=== PATIENT | female | born 1985 | race Two or more races ===

== ENCOUNTER 2016-07-17 17:29 | Outpatient (CLI) | payer MEDICAID ==
[2016-07-17 18:15] LABS: APPEARANCE,URINE CLEAR; BILIRUBIN,URINE NEGATIVE (NEGATIVE); GLUCOSE, URINE NEGATIVE (NEGATIVE); KETONES,URINE NEGATIVE (NEGATIVE); LEUKOCYTE ESTERASE,URINE NEGATIVE (NEGATIVE); NITRITE,URINE NEGATIVE (NEGATIVE); PROTEIN,URINE NEGATIVE (NEGATIVE); URINE SPECIFIC GRAVITY 1.002; UROBILINOGEN,URINE NEGATIVE mg/dL (<2.0)
[2016-07-17 18:32] LABS: URINE BARBITURATES SCREEN NEGATIVE; URINE METHADONE SCREEN NEGATIVE; URINE OPIATES LOW NEGATIVE; URINE PHENCYCLIDINE SCREEN NEGATIVE
== END 2016-07-17 18:57 | disposition home or self-care (01) ==
LOC: LC 17:29
PROVIDERS: ATTEND Obstetrics & Gynecology
DX: Z3A.25 25 weeks gestation of pregnancy (principal)
CPT/HCPCS: 80307; 81001

== ENCOUNTER → 2016-08-06 | Outpatient (CLI) | payer MEDICAID | LOC: SP 11:18 | PROVIDERS: ATTEND Advanced Practice Midwife | DX: M79.661 Pain in right lower leg (principal) | CPT/HCPCS: 93971 ==

== ENCOUNTER 2016-08-29 15:29 | Outpatient (CLI) | payer MEDICAID ==
[2016-08-29 16:28] LABS: APPEARANCE,URINE SLIGHTLY-CLOUDY; BILIRUBIN,URINE NEGATIVE (NEGATIVE); GLUCOSE, URINE NEGATIVE (NEGATIVE); KETONES,URINE 20 mg/dL (NEGATIVE); LEUKOCYTE ESTERASE,URINE NEGATIVE (NEGATIVE); NITRITE,URINE NEGATIVE (NEGATIVE); PROTEIN,URINE NEGATIVE (NEGATIVE); URINE SPECIFIC GRAVITY 1.006; UROBILINOGEN,URINE NEGATIVE mg/dL (<2.0)
[2016-08-29 16:41] LABS: URINE BARBITURATES SCREEN NEGATIVE; URINE METHADONE SCREEN NEGATIVE; URINE OPIATES LOW NEGATIVE; URINE PHENCYCLIDINE SCREEN NEGATIVE
[2016-08-29] MEDS ORDERED: BETAMET ACET/BETAMET NA INJ 6 MG/1 ML ONE (16:41)
[2016-08-29 17:12] LABS: ABSOLUTE EOSINOPHILS # (AUTO) 0.1 10^3/uL (0.0-0.6); ABSOLUTE LYMPHOCYTES (AUTO) 1.4 10^3/uL (0.5-4.7); ABSOLUTE MONOCYTES (AUTO) 0.5 10^3/uL (0.1-1.4); ABSOLUTE NEUT (AUTO) 5.6 10^3/uL (1.7-8.2); BASOPHILS % (AUTO) 0.6 % (0-2); EOSINOPHILS % (AUTO) 0.7 % (0-6); HGB HCT DIFFERENCE -2.1; LYMPHOCYTES % (AUTO) 18.3 % (13-45); MEAN CORPUSCULAR HEMOGLOBIN 20.2 pg (27.0-33.4); MEAN CORPUSCULAR HGB CONC 30.4 g/dL (32.0-36.0); MEAN CORPUSCULAR VOLUME 66 fl (80-97); MONOCYTES % (AUTO) 6.5 % (3-13); RED BLOOD COUNT 3.63 10^6/uL (3.72-5.28); RED CELL DISTRIBUTION WIDTH 19.3 % (11.5-14.0); SEGMENTED NEUTROPHILS % (AUTO) 73.9 % (42-78); WHITE BLOOD COUNT 7.6 10^3/uL (4.0-10.5)
[2016-08-29 17:16] LABS: HEMOGLOBIN 7.3 g/dL (12.0-15.5)
[2016-08-29 17:34] LABS: ALANINE AMINOTRANSFERASE 18 U/L (9-52); ALBUMIN 3.1 g/dL (3.5-5.0); ALKALINE PHOSPHATASE 123 U/L (38-126); AMYLASE 32 U/L (30-110); ANION GAP 9 (5-19); ASPARTATE AMINO TRANSFERASE 13 U/L (14-36); BILIRUBIN,DIRECT 0.1 mg/dL (0.0-0.4); BILIRUBIN,TOTAL 0.6 mg/dL (0.2-1.3); BLOOD UREA NITROGEN 6 mg/dL (7-20); CALCIUM 8.5 mg/dL (8.4-10.2); CARBON DIOXIDE 22 mmol/L (22-30); CHLORIDE 103 mmol/L (98-107); CREATININE RESULT 0.38 mg/dL (0.52-1.25); GLUCOSE 252 mg/dL (75-110); LIPASE 36.8 U/L (23-300); SODIUM 134.1 mmol/L (137-145); TOTAL PROTEIN 5.5 g/dL (6.3-8.2)
== END 2016-08-29 16:33 | disposition home or self-care (01) ==
LOC: LC 15:29
PROVIDERS: ATTEND Obstetrics & Gynecology
PROC: 4A1HXCZ Monitoring of Products of Conception, Cardiac Rate, External Approach (ICD-10-PCS; principal; 2016-08-29)
DX: O47.03 False labor before 37 completed weeks of gestation, third trimester (principal); O99.283 Endocrine, nutritional and metabolic diseases complicating pregnancy, third trimester; E86.0 Dehydration; Z3A.31 31 weeks gestation of pregnancy
CPT/HCPCS: 59899; 96372; 36415; 82150; 83690; 85025; 80053; 81001; 80307; 76815; J0702

== ENCOUNTER → 2016-08-30 | Outpatient (CLI) | payer MEDICAID | LOC: LC 17:15 | PROVIDERS: ATTEND Obstetrics & Gynecology | PROC: 4A1HXCZ Monitoring of Products of Conception, Cardiac Rate, External Approach (ICD-10-PCS; principal; 2016-08-30) | DX: Z36 Encounter for antenatal screening of mother (principal) | CPT/HCPCS: 96372 ==

== ENCOUNTER 2016-09-07 13:49 | Emergency (ER) | payer MEDICAID ==
--- NOTE | 2016-09-07 15:42 | ER Document Report ---
ED Medical Screen (RME) - General Chief Complaint: Dizziness Stated Complaint: DIFFICULTY BREATHING, DIZZINESS Notes: patient says that she's been feeling like she can't breathe well for the past week. She's had about 3 episodes. They've been associated with feeling dizzy and blurred vision. She has a history of anemia and was almost transfused during her first . She says that her hemoglobin 2 weeks ago was 7.3. She is not having any bleeding. She is on iron pills and they don't seem to be helping. She's having problems with constipation. Patient is 33 weeks gestation. No vaginal bleeding. TRAVEL OUTSIDE OF THE [place] IN LAST 30 DAYS: No - Related Data Allergies/Adverse Reactions: No Known Allergies Allergy (Verified 09/07/16 13:54) Past Medical History Endocrine Medical History: Reports: Hx Diabetes Mellitus Type 2 Renal/ Medical History: Denies: Hx Peritoneal Dialysis - Immunizations Hx Diphtheria, Pertussis, Tetanus Vaccination: Yes - 01/10/14 Physical Exam - Vital signs Vitals: Temp Pulse Resp BP Pulse Ox 98.6 F 93 32 H 112/69 99 09/07/16 13:55 09/07/16 13:55 09/07/16 13:55 09/07/16 13:55 09/07/16 13:55 Course - Vital Signs Vital signs: Temp Pulse Resp BP Pulse Ox 98.6 F 93 32 H 112/69 99 09/07/16 13:55 09/07/16 13:55 09/07/16 13:55 09/07/16 13:55 09/07/16 13:55
[2016-09-07 16:47] LABS: ABSOLUTE BASOPHILS # (AUTO) 0.1 10^3/uL (0.0-0.2); ABSOLUTE EOSINOPHILS # (AUTO) 0.1 10^3/uL (0.0-0.6); ABSOLUTE LYMPHOCYTES (AUTO) 1.8 10^3/uL (0.5-4.7); ABSOLUTE MONOCYTES (AUTO) 0.9 10^3/uL (0.1-1.4); ABSOLUTE NEUT (AUTO) 6.3 10^3/uL (1.7-8.2); BASOPHILS % (AUTO) 0.7 % (0-2); EOSINOPHILS % (AUTO) 1.1 % (0-6); HEMATOCRIT 26.3 % (36.0-47.0); HGB HCT DIFFERENCE -2.6; LYMPHOCYTES % (AUTO) 19.4 % (13-45); MEAN CORPUSCULAR HEMOGLOBIN 19.6 pg (27.0-33.4); MEAN CORPUSCULAR HGB CONC 30.1 g/dL (32.0-36.0); MEAN CORPUSCULAR VOLUME 65 fl (80-97); MONOCYTES % (AUTO) 9.8 % (3-13); RED BLOOD COUNT 4.03 10^6/uL (3.72-5.28); RED CELL DISTRIBUTION WIDTH 18.9 % (11.5-14.0); WHITE BLOOD COUNT 9.1 10^3/uL (4.0-10.5)
[2016-09-07 16:49] LABS: HEMOGLOBIN 7.9 g/dL (12.0-15.5)
[2016-09-07 16:52] LABS: AMORPHOUS SEDIMENT,URINE TRACE /HPF; APPEARANCE,URINE SLIGHTLY-CLOUDY; BILIRUBIN,URINE NEGATIVE (NEGATIVE); GLUCOSE, URINE NEGATIVE (NEGATIVE); KETONES,URINE NEGATIVE (NEGATIVE); LEUKOCYTE ESTERASE,URINE TRACE (NEGATIVE); NITRITE,URINE NEGATIVE (NEGATIVE); PROTEIN,URINE NEGATIVE (NEGATIVE); URINE SPECIFIC GRAVITY 1.015; UROBILINOGEN,URINE NEGATIVE mg/dL (<2.0)
--- NOTE | 2016-09-07 16:55 | ER Document Report ---
ED General - General Chief Complaint: Dizziness Stated Complaint: DIFFICULTY BREATHING, DIZZINESS Time seen by provider: 16:51 Mode of Arrival: Ambulatory Information source: Patient Notes: 30 yo female 33 weeks c/o shortness of breath that started saturday/ saturday/saturday, associated with burred vision, dizziness and fatigue that she has had for a few months. low hemaglobin of 7.3 found 2 weeks ago, but was 8 at beginning of the . [facility] [employer]. SOB not associated with activity, no hx asthma, non smoker. The SOB decreases after laying on the bed on her left side. RR 32, I counted myself. got her to stand and she started exhaling through pursed lips. pulse ox 100% during this. TRAVEL OUTSIDE OF THE [place] IN LAST 30 DAYS: No - Related Data Allergies/Adverse Reactions: No Known Allergies Allergy (Verified 09/07/16 13:54) Past Medical History - General Information source: Patient - Social History Smoking Status: Never Smoker Chew tobacco use (# tins/day): No Frequency of alcohol use: None Drug Abuse: None Lives with: Family Family History: Reviewed & Not Pertinent Patient has suicidal ideation: No Patient has homicidal ideation: No - Medical History Notes: anemia, Pulmonary Medical History: Denies: Hx Asthma Endocrine Medical History: Reports: Hx Diabetes Mellitus Type 2 Renal/ Medical History: Denies: Hx Peritoneal Dialysis Surgical Hx: Negative - Immunizations Hx Diphtheria, Pertussis, Tetanus Vaccination: Yes - 01/10/14 Review of Systems - Review of Systems Constitutional: No symptoms reported EENT: No symptoms reported Cardiovascular: No symptoms reported Respiratory: See HPI Gastrointestinal: No symptoms reported Genitourinary: No symptoms reported Female Genitourinary: No symptoms reported Musculoskeletal: No symptoms reported Skin: No symptoms reported Hematologic/Lymphatic: No symptoms reported Neurological/Psychological: No symptoms reported Physical Exam - Vital signs Vitals: Temp Pulse Resp BP Pulse Ox 98.6 F 93 32 H 112/69 99 09/07/16 13:55 09/07/16 13:55 09/07/16 13:55 09/07/16 13:55 09/07/16 13:55 Interpretation: Tachypneic - General General appearance: Appears well, Alert In distress: None - HEENT Head: Normocephalic, Atraumatic Eyes: Normal Pupils: PERRL - Respiratory Respiratory status: No respiratory distress Chest status: Nontender Breath sounds: Normal Chest palpation: Normal - Cardiovascular Rhythm: Regular Heart sounds: Normal auscultation Murmur: No - Abdominal Inspection: Normal Distension: No distension Bowel sounds: Normal Tenderness: Nontender Organomegaly: Other - gravid uterus - Back Back: Normal, Nontender. No: CVA tenderness - Extremities General upper extremity: Normal inspection, Nontender, Normal color, Normal ROM , Normal temperature General lower extremity: Normal inspection, Nontender, Normal color, Normal ROM , Normal temperature, Normal weight bearing. No: Paul's sign - Neurological Neuro grossly intact: Yes Cognition: Normal Orientation: AAOx4 [place] Coma Scale Eye Opening: Spontaneous [place]ara Coma Scale Verbal: Oriented [place] Coma Scale Motor: Obeys Commands Zara Coma Scale Total: 15 Speech: Normal Motor strength normal: LUE, RUE, LLE, RLE Sensory: Normal - Psychological Associated symptoms: Normal affect, Normal mood - Skin Skin Temperature: Warm Skin Moisture: Dry Skin Color: Normal Skin irregularity: negative: Rash Course - Re-evaluation Re-evalutation: 09/07/16 17:[address] Baez who was in the department who said to get CTA, with IV contrast , OK at 33 weeks. Her hemoglobin is 7.9 which is actually higher than 2 weeks ago. Taking iron 3 times a day. 09/07/16 17:35 dr crowder aware of the CTA order and the pt. be drawn nebulizer did not change in symptoms. She has been tearful several times during this visit. 09/07/16 18:53 The CTA was negative. Consult Dr. Rodríguez who said that it is okay to give her some Ativan 0.5 mg prescription and I will tell her to follow up with them on Saturday. 09/07/16 19:04 dr. crowder is ok with the discharge. and OK with plan - Vital Signs Vital signs: Temp Pulse Resp BP Pulse Ox 97.8 F 83 20 110/73 97 09/07/16 19:22 09/07/16 19:22 09/07/16 19:22 09/07/16 19:22 09/07/16 19:22 - Laboratory Result Diagrams: 09/07/16 16:16 09/07/16 16:16 Laboratory results interpreted by me: 09/07/16 09/07/16 09/07/16 16:16 16:16 16:16 Hgb 7.9 L Hct 26.3 L MCV 65 L MCH 19.6 L MCHC 30.1 L RDW 18.9 H Sodium 136.0 L Creatinine 0.41 L Alkaline Phosphatase 139 H Ur Leukocyte Esterase TRACE H Discharge - Discharge Clinical Impression: Tachypnea, 33 weeks gestation of , Shortness of breath, Dizziness Condition: Good Disposition: HOME, SELF-CARE Instructions: Dizziness ([facility]), Anemia ([facility]), ([facility]) Additional Instructions: See the [employer] BUSINESS ANALY[employer] doctor on Saturday Return to the emergency room this weekend if worsening symptoms Drink plenty of fluids Continue the 3 iron pills per day Please complete the patient satisfaction survey if you get one, and return it.. If you do not receive a survey, then you can go to the [facility] website, [email or web address] and place your comments about your very good care. Thank you very much. It was a pleasure being your medical provider today. Prescriptions: Lorazepam [Ativan 0.5 mg Tablet] 0.5 mg PO TIDP PRN #15 tab PRN Reason: Referrals: FRANKIE BAEZ DO [Primary Care Provider] - 09/10/16
[2016-09-07 17:05] LABS: ALANINE AMINOTRANSFERASE 20 U/L (9-52); ALBUMIN 3.6 g/dL (3.5-5.0); ALKALINE PHOSPHATASE 139 U/L (38-126); ANION GAP 8 (5-19); ASPARTATE AMINO TRANSFERASE 16 U/L (14-36); BILIRUBIN,DIRECT 0.1 mg/dL (0.0-0.4); BILIRUBIN,TOTAL 0.6 mg/dL (0.2-1.3); BLOOD UREA NITROGEN 10 mg/dL (7-20); CALCIUM 9.2 mg/dL (8.4-10.2); CARBON DIOXIDE 24 mmol/L (22-30); CHLORIDE 104 mmol/L (98-107); CREATININE RESULT 0.41 mg/dL (0.52-1.25); GLUCOSE 95 mg/dL (75-110); POTASSIUM 4.5 mmol/L (3.6-5.0); TOTAL PROTEIN 6.6 g/dL (6.3-8.2)
[2016-09-07] MEDS ORDERED: ALBUTEROL SULFATE 0.083% NEB 2.5 MG/3 ML AMPUL NEB ONE (17:05)
[2016-09-07] MEDS ORDERED: LORAZEPAM 0.5 MG TABLET PO ONE (18:52)
[2016-09-07 19:23] VITALS: BP 110/73
== END 2016-09-07 19:21 | disposition home or self-care (01) ==
LOC: ER 13:49
DX: O26.93 Pregnancy related conditions, unspecified, third trimester (principal); R06.82 Tachypnea, not elsewhere classified; R42 Dizziness and giddiness; Z3A.33 33 weeks gestation of pregnancy
CPT/HCPCS: 36415; 71275; 80053; 81001; 85025; 94640; 99285

== ENCOUNTER 2016-09-25 17:51 | Outpatient (CLI) | payer MEDICAID | END 2016-09-25 20:08 | disposition home or self-care (01) | LOC: LC 17:51 | PROVIDERS: ATTEND Student in an Organized Health Care Education/Training Program | PROC: 4A1HXCZ Monitoring of Products of Conception, Cardiac Rate, External Approach (ICD-10-PCS; principal; 2016-09-25) | DX: O47.03 False labor before 37 completed weeks of gestation, third trimester (principal); Z3A.35 35 weeks gestation of pregnancy | CPT/HCPCS: 59025 ==

== ENCOUNTER 2016-09-26 09:58 | Outpatient (CLI) | payer MEDICAID ==
[2016-09-26 11:55] LABS: APPEARANCE,URINE CLOUDY; BILIRUBIN,URINE NEGATIVE (NEGATIVE); GLUCOSE, URINE NEGATIVE (NEGATIVE); KETONES,URINE NEGATIVE (NEGATIVE); LEUKOCYTE ESTERASE,URINE NEGATIVE (NEGATIVE); NITRITE,URINE NEGATIVE (NEGATIVE); PROTEIN,URINE NEGATIVE (NEGATIVE); URINE SPECIFIC GRAVITY 1.004; UROBILINOGEN,URINE NEGATIVE mg/dL (<2.0)
[2016-09-26 12:09] LABS: URINE BARBITURATES SCREEN NEGATIVE; URINE METHADONE SCREEN NEGATIVE; URINE OPIATES LOW NEGATIVE; URINE PHENCYCLIDINE SCREEN NEGATIVE
== END 2016-09-26 11:26 | disposition home or self-care (01) ==
LOC: LC 09:58
PROVIDERS: ATTEND Obstetrics & Gynecology
PROC: 4A1HXCZ Monitoring of Products of Conception, Cardiac Rate, External Approach (ICD-10-PCS; principal; 2016-09-26)
DX: O47.03 False labor before 37 completed weeks of gestation, third trimester (principal); Z3A.35 35 weeks gestation of pregnancy
CPT/HCPCS: 59025; 80307; 81001

== ENCOUNTER 2016-10-09 09:35 | Outpatient (CLI) | payer MEDICAID ==
[~2016-10-09 09:35] MED LIST: FERRIC CARBOXYMALTOSE 750 MG in NORMAL SALINE 250 ML IV PRN; NORMAL SALINE 250 ML IV PRN
[2016-10-09 10:01] VITALS: BP 117/65
== END 2016-10-09 10:22 | disposition home or self-care (01) ==
LOC: II 09:35 → 5TH 09:36 → II 10:22
PROVIDERS: ATTEND Internal Medicine
PROC: 3E033GC Introduction of Other Therapeutic Substance into Peripheral Vein, Percutaneous Approach (ICD-10-PCS; principal; 2016-10-09)
DX: D50.8 Other iron deficiency anemias (principal); K90.9 Intestinal malabsorption, unspecified
CPT/HCPCS: 96365; J7050; J1439

== ENCOUNTER 2016-10-20 22:48 | Inpatient (IN) | payer MEDICAID ==
[2016-10-20 23:34] LABS: APPEARANCE,URINE SLIGHTLY-CLOUDY; BILIRUBIN,URINE NEGATIVE (NEGATIVE); GLUCOSE, URINE 50 mg/dL (NEGATIVE); KETONES,URINE TRACE mg/dL (NEGATIVE); LEUKOCYTE ESTERASE,URINE TRACE (NEGATIVE); NITRITE,URINE NEGATIVE (NEGATIVE); PROTEIN,URINE 30 mg/dL (NEGATIVE); URINE SPECIFIC GRAVITY 1.027
[2016-10-20 23:48] LABS: URINE BARBITURATES SCREEN NEGATIVE; URINE METHADONE SCREEN NEGATIVE; URINE OPIATES LOW NEGATIVE; URINE PHENCYCLIDINE SCREEN NEGATIVE
[2016-10-21] MEDS ORDERED: RINGERS SOLUTION,LACTATED 1,000 ML IV PRN (00:11)
[2016-10-21 01:25] LABS: ABSOLUTE EOSINOPHILS # (AUTO) 0.1 10^3/uL (0.0-0.6); ABSOLUTE LYMPHOCYTES (AUTO) 3.3 10^3/uL (0.5-4.7); ABSOLUTE MONOCYTES (AUTO) 0.8 10^3/uL (0.1-1.4); ABSOLUTE NEUT (AUTO) 5.8 10^3/uL (1.7-8.2); BASOPHILS % (AUTO) 0.4 % (0-2); EOSINOPHILS % (AUTO) 0.9 % (0-6); HEMATOCRIT 38.4 % (36.0-47.0); LYMPHOCYTES % (AUTO) 32.8 % (13-45); MEAN CORPUSCULAR HEMOGLOBIN 22.7 pg (27.0-33.4); MEAN CORPUSCULAR HGB CONC 29.7 g/dL (32.0-36.0); MEAN CORPUSCULAR VOLUME 77 fl (80-97); MONOCYTES % (AUTO) 8.4 % (3-13); RED BLOOD COUNT 5.02 10^6/uL (3.72-5.28); RED CELL DISTRIBUTION WIDTH 37.2 % (11.5-14.0); SEGMENTED NEUTROPHILS % (AUTO) 57.5 % (42-78)
[2016-10-21 01:34] LABS: HGB HCT DIFFERENCE -4.2
[2016-10-21] MEDS ORDERED: OXYTOCIN/NORMAL SALINE 20 UNIT/1,000 ML RTUINJ ONE (01:53)
[2016-10-21] MEDS ORDERED: MISOPROSTOL 0.2 MG TABLET ONE (01:53)
[2016-10-21] MEDS ORDERED: LIDOCAINE 1% INJ-PF (10 MG/ML) 30 ML SDV ONE (01:53)
[2016-10-21 01:54] LABS: ANISOCYTOSIS 4+; HYPOCHROMASIA 1+; MICROCYTOSIS 1+; OVALOCYTES 1+; POIKILOCYTOSIS 1+; POLYCHROMASIA SLIGHT; TARGET CELLS SLIGHT; TEAR DROP CELLS SLIGHT
[2016-10-21] MEDS ORDERED: DIPH/PERTUSS(ACELL)/TETANUS VAC/PF 0.5 ML SYR (>=10YO) IM PRN (01:54)
[2016-10-21] MEDS ORDERED: OXYTOCIN/NORMAL SALINE 1,000 ML IV PRN (01:54)
[2016-10-21] MEDS ORDERED: DIBUCAINE 1% OINTMENT 28 GM TP PRN (01:54)
[2016-10-21] MEDS ORDERED: ZOLPIDEM TARTRATE 5 MG TABLET PO PRN (01:54)
[2016-10-21] MEDS ORDERED: ACETAMINOPHEN WITH CODEINE #3 TABLET PO PRN ×2 (01:54)
[2016-10-21] MEDS ORDERED: BENZOCAINE/MENTHOL AEROSOL SPRAY 56 ML TOP PRN (01:54)
[2016-10-21] MEDS ORDERED: MEASLES,MUMPS&RUBELLA VACC/PF 0.5 ML VIAL SUBCUT PRN (01:54)
[2016-10-21 01:57] LABS: HEMOGLOBIN 11.4 g/dL (12.0-15.5)
--- NOTE | 2016-10-21 03:07 | Delivery Summary ---
Del Sum A-C Datetime Report Generated by CPN: 10/21/2016 03:06 DELIVERY PERSONNEL DELIVERY PERSONNEL: [id number] Delivery Doctor:: Rosa Castro MD Labor and Delivery Nurse:: Marly Boston RN Nursery Nurse:: Denise Warren RN In Flight Technician/HALF BACKER: [facility] Additional Personnel: : C. George slab grinder MATERNAL INFORMATION Delivery Anesthesia: None Medications After Delivery: Pitocin Bolus-Please Comment Meds After Delivery Comment: 20 units pitocin bolus after placenta delivery Estimated Blood Loss (ml): 150 Maternal Complications: None LABOR SUMMARY EDC: 10/30/2016 00:00 No. Babies in Womb: 1 Attempted: No Labor Anesthesia: None LABOR INFORMATION Reason for Induction: Not Applicable Onset of Labor: 10/20/2016 18:00 Complete Dilatation: 10/21/2016 00:40 Oxytocin: N/A Group B Beta Strep: negative Steroids Given: Full Course; > 24 Hours before Delivery Reason Steroids Not Administered: Not Applicable MEMBRANES Membranes Rupture Method: Artificial Rupture of Membranes: 10/21/2016 00:44 Length of Rupture (hr): 0.25 Amniotic Fluid Color: Clear Amniotic Fluid Amount: Moderate Amniotic Fluid Odor: Normal STAGES OF LABOR Stage 1 hr: 6 Stage 1 min: 40 Stage 2 hr: 0 Stage 2 min: 19 Stage 3 hr: 0 Stage 3 min: 3 Total Time in Labor hr: 7 Total Time in Labor min: 2 VAGINAL DELIVERY Episiotomy: None Laceration Extension: N/A Laceration Type: None Sponge Count Correct: N/A Sharps Count Correct: N/A CSECTION DELIVERY Primary Indication: N/A Secondary Indication: N/A CSection Urgency: N/A CSection Incidence: N/A Labor: N/A Elective: N/A CSection Incision: N/A BABY A INFORMATION Infant Delivery Date/Time: 10/21/2016 00:59 Method of Delivery: Vaginal Born in Route : No : N/A Forceps: N/A Vacuum Extraction: N/A Shoulder Dystocia : No PRESENTATION/POSITION BABY A Presentation: Cephalic Cephalic Presentation: Vertex Vertex Position: Left Occipital Anterior Breech Presentation: N/A PLACENTA INFORMATION BABY A Placenta Delivery Time : 10/21/2016 01:02 Placenta Method of Delivery: Spontaneous Placenta Status: Delivered SCORES BABY A Heart Rate 1 min: >100 bpm Resp Effort 1 min: Good Cry Reflex Irritability 1 min: Cough or Sneeze or Pulls Away Muscle Tone 1 min: Active Motion Color 1 min: Blue/Pale Resuscitation Effort 1 min: Tactile Stimulation SCORE 1 MIN: 8 Heart Rate 5 min: >100 bpm Resp Effort 5 min: Good Cry Reflex Irritability 5 min: Cough or Sneeze or Pulls Away Muscle Tone 5 min: Active Motion Color 5 min: Body [place], Extremities Blue Resuscitation Effort 5 min: N/A SCORE 5 MIN: 9 INFANT INFORMATION BABY A Gestational Age at Delivery: 38.5 Gestational Status: Early Term- 37- 38.6 Weeks Outcome : Liveborn Condition : Stable Sex: Male IDENTIFICATION BABY A Infant Verification Date/Time: 10/21/2016 01:27 ID Band Number: [id number] Mother's Name Verified: Yes RN Verifying Infant: K, Rik, RN Additional Verifying Personnel: Moshe Boston RN WEIGHT/LENGTH BABY A Infant Birthweight (gm): 3355 Weight (lb): 7 Infant Weight (oz): 6 Infant Length (in): 49.00 Infant Length (cm): 124.46 CORD INFORMATION BABY A No. Cord Vessels: 3 Nuchal Cord : N/A Cord Blood Taken: Yes-For Eval (Mom's Blood Type - or O+) Infant Suction: Mouth ASSESSMENT BABY A Infant Complications: Other Infant Complications- Other: Terminal meconium, terminal bradycardia Physical Findings at Delivery: Other Physical Findings- Other: see nursery notes Infant Respirations: Appears Normal Skin to Skin: No Butcher Fish/ALS Called : No Care By: Fran Warren RN Transferred To: Remains with Mother BABY B INFORMATION : N/A SIGNATURES Signature: with User ID: [email or web address]
--- NOTE | 2016-10-21 03:31 | Admission Physical ---
Datetime Report Generated by CPN: 10/21/2016 03:31 CURRENT ADMISSION Chief Complaint: Uterine Contractions Indication for Induction: Not Applicable Admit Plan: Admit to Unit; Initiate Labor Protocol ALLERGIES Medication Allergies: No Medication Allergies: No Known Allergies (09/26/2016) Medication Allergies: No Known Allergies (09/07/2016) Medication Allergies: No Known Allergies (03/17/2016) Medication Allergies: No Known Allergies (07/29/2013) Latex: No Latex Allergies Food Allergies: None Environmental Allergies: None OBSTETRICAL HISTORY EDC: 10/30/2016 00:00 : 5 Para: 4 Para: 4 Term: 1 : 3 Ectopic: 0 Livin Cesareans: 0 VBACs: 0 Multiple Births: 0 Gestational Diabetes: Yes Rh Sensitization: No Incompetent Cervix: No JUAN: No Infertility: No ART Treatment: No Uterine Anomaly: No IUGR: No Hx Previous C/S: No Macrosomia: No Hx Loss/Stillborn: No PIH: Yes Hx : No Placenta Previa/Abruption: No Depression/PP Depression: No PTL/PROM: No Post Hemorrhage: No Current Procedures: Ultrasound Obstetrical History Comments: H/O 3 pregnancies, 1 full term. Also has h/o HTN and gestational diabetes with previous pregnancies. G1-2002- 36 weeks G2-2007- 35 weeks G3- 2010- 34 weeks G4- 2013- 39.2 weeks GDM SEE RECORDS Alcohol: No Marijuana : No Cocaine: No Other Illicit Drugs: No Cigarettes: Never Smoker. [id number] MEDICAL HISTORY Diabetes: Yes Diabetes Type: Gestational Diabetes Blood Transfusion: No Pulmonary Disease (Asthma, TB): No Breast Disease: No Hypertension: No Finisher Special Stocks Surgery: No Heart Disease: No Hosp/Surgery: No Autoimmune Disorder: No Anesthetic Complications: No Kidney Disease: No Abnormal Pap Smear: No Neuro/Epilepsy: No Psychiatric Disorders: No Other Medical Diseases: No Hepatitis/Liver Disease: No Significant Family History: No Varicosities/Phlebitis: No Trauma/Violence : No Thyroid Dysfunction: No INFECTIOUS HISTORY Gonorrhea: No Genital Herpes: No Chlamydia: No Tuberculosis: No Syphilis: No Hepatitis: No HIV/AIDS Exposure: No Rash or Viral Illness: No HPV: No PHYSICAL EXAM General: Normal HEENT: Normal Neurologic: Normal Thyroid: Normal Heart: Normal Lungs: Normal Breast: Normal Back: Normal Abdomen: Normal Genitourinary Exam: Normal Extremities: Normal DTRs: Normal Pelvic Type: Adequate Vital Signs: Reviewed VAGINAL EXAM Dilatation: 5 Effacement: 90 Station: -1 MEMBRANES Pooling: Negative Membranes: Intact FETUS A EGA: 38.5 Monitoring: External US FHR- Baseline: 130 Variability: Moderate 6-25bpm Accelerations: 10X10 Decelerations: None FHR Category: Category I Estimated Weight (gm): 3500 Presentation: Vertex PLANS FOR LABOR AND DELIVERY Labor and Delivery: None Pain Management: None Feeding Preference: Breast Benefit of Breast Feed Discussed: Yes Circumcision: No INFORMED CONSENT Signature: with User ID: [email or web address]
[2016-10-21] MEDS: IBUPROFEN 800 MG TABLET PO SCH ×3 (05:05→21:25)
[2016-10-21] MEDS: FERROUS SULFATE 325 MG TABLET PO SCH ×2 (09:08→17:01)
[2016-10-21] MEDS: SENNOSIDES/DOCUSATE 8.6-50 MG 1 EACH TABLET PO SCH (09:08)
[2016-10-21] MEDS: DOCUSATE SODIUM 100 MG CAPSULE PO SCH ×2 (09:09→17:01)
[2016-10-21] MEDS: PRENATAL VITAMIN W-O CA NO5/FE FUMARATE/FA CAPSULE PO SCH (09:09)
--- NOTE | 2016-10-21 11:41 | PDOC PROGRESS REPORT ---
Subjective-OB Subjective: Post Delivery Day: 30 year old. Denies any needs at this time Physical Exam (OB) Vital Signs: Temp Pulse Resp BP Pulse Ox 98.1 F 66 16 120/70 98 10/21/16 07:54 10/21/16 07:54 10/21/16 07:54 10/21/16 07:54 10/21/16 07:54 Intake & Output 10/20/16 10/21/16 10/22/16 06:59 06:59 06:59 Weight 73.45 kg - Lochia Lochia Amount: Small 10-25 ml Lochia Color: Rubra/Red - Abdomen Description: Soft, Round Hernia Present: No Bowel Sounds: Normoactive Flatus Presence: Present Stool: No Fundal Description: Firm, Midline Fundal Height: 1/u - 2/u Objective-Diagnostic Laboratory: 10/21/16 01:07 10/20/16 10/21/16 10/21/16 23:00 01:07 01:07 WBC 10.0 RBC 5.02 Hgb 11.4 L Hct 38.4 MCV 77 L MCH 22.7 L MCHC 29.7 L RDW 37.2 H Plt Count 184 Seg Neutrophils % 57.5 Lymphocytes % 32.8 Monocytes % 8.4 Eosinophils % 0.9 Basophils % 0.4 Absolute Neutrophils 5.8 Absolute Lymphocytes 3.3 Absolute Monocytes 0.8 Absolute Eosinophils 0.1 Absolute Basophils 0.0 Urine Color YELLOW Urine Appearance SLIGHTLY-CLOUDY Urine pH 6.0 Ur Specific [place] 1.027 Urine Protein 30 H Urine Glucose (UA) 50 H Urine Ketones TRACE H Urine Blood NEGATIVE Urine Nitrite NEGATIVE Ur Leukocyte Esterase TRACE H Blood Type O POSITIVE Antibody Screen NEGATIVE
[2016-10-22] MEDS: IBUPROFEN 800 MG TABLET PO SCH ×3 (06:08→21:00)
[2016-10-22 07:57] LABS: HEMATOCRIT 29.8 % (36.0-47.0); HGB HCT DIFFERENCE -1.6; MEAN CORPUSCULAR HEMOGLOBIN 24.4 pg (27.0-33.4); MEAN CORPUSCULAR HGB CONC 31.6 g/dL (32.0-36.0); MEAN CORPUSCULAR VOLUME 77 fl (80-97); RED BLOOD COUNT 3.86 10^6/uL (3.72-5.28); RED CELL DISTRIBUTION WIDTH 36.3 % (11.5-14.0); WHITE BLOOD COUNT 7.4 10^3/uL (4.0-10.5)
[2016-10-22 08:24] LABS: HEMOGLOBIN 9.4 g/dL (12.0-15.5)
[2016-10-22] MEDS: PRENATAL VITAMIN W-O CA NO5/FE FUMARATE/FA CAPSULE PO SCH (09:37)
[2016-10-22] MEDS: SENNOSIDES/DOCUSATE 8.6-50 MG 1 EACH TABLET PO SCH (09:37)
[2016-10-22] MEDS: FERROUS SULFATE 325 MG TABLET PO SCH ×2 (09:38→18:20)
[2016-10-22] MEDS: DOCUSATE SODIUM 100 MG CAPSULE PO SCH ×2 (09:38→18:20)
--- NOTE | 2016-10-22 10:06 | PDOC PROGRESS REPORT ---
Subjective-OB Subjective: Post Delivery Day:2 30 year old. Denies any needs at this time, states lochia is stable, pain well controlled, voiding without difficulty. Pt desires d/c home if baby can be d/c. Physical Exam (OB) Vital Signs: Temp Pulse Resp BP Pulse Ox 97.9 F 78 18 104/58 L 100 10/22/16 08:00 10/22/16 08:00 10/22/16 08:00 10/22/16 08:00 10/22/16 08:00 Intake & Output 10/21/16 10/22/16 10/23/16 06:59 06:59 06:59 Intake Total 1000 Balance 1000 Weight 73.45 kg - Lochia Lochia Amount: Small 10-25 ml Lochia Color: Rubra/Red - Abdomen Description: Soft, Round Hernia Present: No Fundal Description: Firm, Midline Fundal Height: u/u - u/2 Objective-Diagnostic Laboratory: 10/22/16 07:03 10/22/16 07:03 WBC 7.4 RBC 3.86 Hgb 9.4 L Hct 29.8 L MCV 77 L MCH 24.4 L MCHC 31.6 L RDW 36.3 H Plt Count 183 Assessment and Plan(PN) - Assessment and Plan (1) GDM (gestational diabetes mellitus) Qualifiers: Gestational diabetes mellitus control: diet-controlled Trimester: third trimester Qualified Code(s): O24.410 - Gestational diabetes mellitus in , diet controlled Is this a current diagnosis for this admission?: YesPlan: yearly screening for the next 10 years. pp screen after done nursing (2) Qualifiers: Weeks of gestation: 38 weeks Qualified Code(s): Z3A.38 - 38 weeks gestation of Is this a current diagnosis for this admission?: YesPlan: (3) Anemia associated with acute blood loss Is this a current diagnosis for this admission?: YesPlan: ferrous sulfate increase dietary iron (4) Delivery normal Is this a current diagnosis for this admission?: YesPlan: routine pp care d/c home today if baby can be d/c cancel d/c if baby has to stay f/u @ [facility] in 4 w - Time Spent with Patient Time with patient: Less than 15 minutes Critical Time spent with patient: Less than 15 minutes Medications reviewed and adjusted accordingly: Yes - Disposition Anticipated Discharge: Home Within: within 24 hours
[2016-10-22 21:21] VITALS: BP 116/71
[2016-10-23] MEDS: IBUPROFEN 800 MG TABLET PO SCH ×2 (05:57→13:07)
[2016-10-23] MEDS: PRENATAL VITAMIN W-O CA NO5/FE FUMARATE/FA CAPSULE PO SCH (09:08)
[2016-10-23] MEDS: FERROUS SULFATE 325 MG TABLET PO SCH (09:09)
[2016-10-23] MEDS: SENNOSIDES/DOCUSATE 8.6-50 MG 1 EACH TABLET PO SCH (09:09)
[2016-10-23] MEDS: DOCUSATE SODIUM 100 MG CAPSULE PO SCH (09:09)
--- NOTE | 2016-10-23 09:46 | PDOC PROGRESS REPORT ---
Subjective-OB Subjective: Post Delivery Day: 30 year old. Denies any needs at this time. Ready to be discharged. Physical Exam (OB) Vital Signs: Temp Pulse Resp BP Pulse Ox 98.1 F 79 18 116/71 100 10/22/16 20:04 10/22/16 20:04 10/22/16 20:04 10/22/16 20:04 10/22/16 20:04 Intake & Output 10/22/16 10/23/16 10/24/16 06:59 06:59 06:59 Intake Total 1000 500 Balance 1000 500 Baby 1 Male 3355 kg - Lochia Lochia Amount: Scant < 10 ml Lochia Color: Rubra/Red - Abdomen Description: Soft, Round Hernia Present: No Bowel Sounds: Normoactive Flatus Presence: Present Stool: Yes Fundal Description: Firm, Midline Fundal Height: u/u - u/2 Objective-Diagnostic Laboratory: 10/22/16 07:03 Assessment and Plan(PN) - Time Spent with Patient Medications reviewed and adjusted accordingly: Yes - Disposition Anticipated Discharge: Home
== END 2016-10-23 13:15 | disposition home or self-care (01) | DRG 775 ==
LOC: LC 22:48 → LR 10-21 00:22 → 2S 10-21 03:15
PROVIDERS: ADMIT Obstetrics & Gynecology; ATTEND Obstetrics & Gynecology
PROC: 10E0XZZ Delivery of Products of Conception, External Approach (ICD-10-PCS; principal; 2016-10-21)
PROC: 10907ZC Drainage of Amniotic Fluid, Therapeutic from Products of Conception, Via Natural or Artificial Opening (ICD-10-PCS; 2016-10-21)
PROC: 4A1HXCZ Monitoring of Products of Conception, Cardiac Rate, External Approach (ICD-10-PCS; 2016-10-21)
PROC: 3E0234Z Introduction of Serum, Toxoid and Vaccine into Muscle, Percutaneous Approach (ICD-10-PCS; 2016-10-23)
DX: O24.420 Gestational diabetes mellitus in childbirth, diet controlled (principal); D62 Acute posthemorrhagic anemia; O99.02 Anemia complicating childbirth; O77.0 Labor and delivery complicated by meconium in amniotic fluid; Z23 Encounter for immunization; Z3A.38 38 weeks gestation of pregnancy; Z37.0 Single live birth
CPT/HCPCS: 36415; 80307; 81005; 82962; 85025; 85027; 86592; 86850; 86900; 86901; 90715; J2590; J3490

== ENCOUNTER 2017-12-04 11:00 | Emergency (ER) | payer SELFPAY ==
--- NOTE | 2017-12-04 11:26 | ER Document Report ---
ED Medical Screen (RME) - General Mode of Arrival: Ambulatory Information source: Patient TRAVEL OUTSIDE OF THE [place] IN LAST 30 DAYS: No <SHERLYN DELACRUZ - Last Filed: 12/04/17 11:21> <OPAL HAMMER - Last Filed: 12/04/17 14:13> - General Chief Complaint: Abdominal Pain Stated Complaint: STOMACH PAIN Notes: 31 y.o female presents to the ED with LT sided abd pain that radiates to her pelvic area and LT sided back. Pt also notes pain radiating to her LT knee. Pt denies any falls, traumas or medical issues. Pt denies taking any medications at home. She reports trying Advil for her pain but denies any relief. Pt denies any fevers, chills, vomiting, blood in stool or dysuria. Pt reports regular BMs although she does usually suffer from chronic constipation. I have greeted and performed a rapid initial assessment of the patient. A comprehensive ED assessment and evaluation of the patient, analysis of test results, and completion of the medical decision making process will be conducted by additional ED providers. Physical Exam: General: Alert, appears well. HEENT: Normocephalic. Atraumatic. Neck: Supple. Respiratory: CTAB Abdominal: No distension. TTP to LLQ. Back: LT CVA tenderness to percussion. Extremities: Moves all four extremities. Neurological: Normal cognition. AAOx4. Normal speech. Psychological: Normal affect. Normal Mood. Skin: Warm. Dry. Normal color. (SHERLYN DELACRUZ) - Related Data Allergies/Adverse Reactions: No Known Allergies Allergy (Verified 12/04/17 11:03) Past Medical History Pulmonary Medical History: Denies: Hx Asthma Endocrine Medical History: Reports: Hx Diabetes Mellitus Type 2 Renal/ Medical History: Denies: Hx Peritoneal Dialysis - Immunizations Hx Diphtheria, Pertussis, Tetanus Vaccination: Yes - 01/10/14 <SHERLYN DELACRUZ - Last Filed: 12/04/17 11:21> - Vital signs Vitals: Temp Pulse Resp BP Pulse Ox 98.5 F 67 14 110/78 99 12/04/17 11:04 12/04/17 11:04 12/04/17 11:04 12/04/17 11:04 12/04/17 11:04 Course - Laboratory Result Diagrams: 12/04/17 12:07 12/04/17 12:07 <OPAL HAMMER - Last Filed: 12/04/17 14:13> - Vital Signs Vital signs: Temp Pulse Resp BP Pulse Ox 98.5 F 67 14 110/78 99 12/04/17 11:04 12/04/17 11:04 12/04/17 11:04 12/04/17 11:04 12/04/17 11:04 - Laboratory Laboratory results interpreted by me: 12/04/17 12/04/17 12:07 12:07 RDW 16.1 H AST 72 H Doctor's Discharge <SHERLYN DELACRUZ - Last Filed: 12/04/17 11:21> <OPAL HAMMER - Last Filed: 12/04/17 14:13> - Discharge Clinical Impression: Flank pain Condition: Good Disposition: HOME, SELF-CARE Instructions: Flank Pain ([facility]) Prescriptions: Ondansetron [Zofran Odt 4 mg Tablet] 1 - 2 tab PO Q4H PRN #15 tab.rapdis PRN Reason: For Nausea/Vomiting Referrals: FRANKIE BAEZ DO [NO LOCAL MD] - Follow up as needed Scribe Documentation - Scribe Written by Scribe:: Héctor Low 12/04/17 1126 acting as scribe for :: Nakul <SHERLYN DELACRUZ - Last Filed: 12/04/17 11:21>
--- NOTE | 2017-12-04 11:46 | ER Document Report ---
ED General - General Chief Complaint: Abdominal Pain Stated Complaint: STOMACH PAIN Time Seen by Provider: 12/04/17 11:22 Mode of Arrival: Ambulatory Information source: Patient Notes: 31-year-old female presents emergency department with complaints of left flank pain for the last 3 day. Patient describes the pain as a sharp and stabbing sensation that starts in the left flank and radiates into the left lower quadrant and down to the left knee. She denies any trauma or injury. No alleviating or exacerbating factors. She has had some intermittent nausea but denies any vomiting, diarrhea, constipation, dysuria, increased urgency, increased frequency, vaginal discharge. TRAVEL OUTSIDE OF THE [place] IN LAST 30 DAYS: No - HPI Onset: Other - 3 days Onset/Duration: Sudden Quality of pain: Sharp, Stabbing Pain Level: 3 Associated symptoms: Nausea Exacerbated by: Denies Relieved by: Denies Similar symptoms previously: No Recently seen / treated by doctor: No - Related Data Allergies/Adverse Reactions: No Known Allergies Allergy (Verified 12/04/17 11:03) Past Medical History - General Information source: Patient - Social History Smoking Status: Never Smoker Chew tobacco use (# tins/day): No Frequency of alcohol use: None Drug Abuse: None, Marijuana Family History: Reviewed & Not Pertinent Patient has suicidal ideation: No Patient has homicidal ideation: No Pulmonary Medical History: Denies: Hx Asthma Endocrine Medical History: Reports: Hx Diabetes Mellitus Type 2 Renal/ Medical History: Denies: Hx Peritoneal Dialysis - Immunizations Hx Diphtheria, Pertussis, Tetanus Vaccination: Yes - 01/10/14 Review of Systems - Review of Systems Constitutional: No symptoms reported EENT: No symptoms reported Cardiovascular: No symptoms reported Respiratory: No symptoms reported Gastrointestinal: Abdominal pain, Nausea Genitourinary: No symptoms reported Female Genitourinary: No symptoms reported Musculoskeletal: No symptoms reported Skin: No symptoms reported Hematologic/Lymphatic: No symptoms reported Neurological/Psychological: No symptoms reported -: Yes All other systems reviewed and negative Physical Exam - Vital signs Vitals: Temp Pulse Resp BP Pulse Ox 98.5 F 67 14 110/78 99 12/04/17 11:04 12/04/17 11:04 12/04/17 11:04 12/04/17 11:04 12/04/17 11:04 Interpretation: Normal - Notes Notes: PHYSICAL EXAMINATION: GENERAL: Well-appearing, well-nourished and in no acute distress. HEAD: Atraumatic, normocephalic. EYES: Pupils equal round and reactive to light, extraocular movements intact, conjunctiva are normal. ENT: Nares patent, oropharynx clear without exudates. Moist mucous membranes. NECK: Normal range of motion, supple without lymphadenopathy LUNGS: Breath sounds clear to auscultation bilaterally and equal. No wheezes rales or rhonchi. HEART: Regular rate and rhythm without murmurs ABDOMEN: Soft, tenderness to palpation in the left flank. No lower abdominal tenderness to palpation. No guarding, no rebound. No masses appreciated. Female : deferred. Musculoskeletal: Normal range of motion, no pitting or edema. No cyanosis. NEUROLOGICAL: Cranial nerves grossly intact. Normal speech, normal gait. Normal sensory, motor exams PSYCH: Normal mood, normal affect. SKIN: Warm, Dry, normal turgor, no rashes or lesions noted. Course - Re-evaluation Re-evalutation: 12/04/17 14:06 Labs and imaging obtained. No acute process identified. Patient given toradol in the ED. I will discharge patient home with rx for zofran. I instructed patient to take over the counter medication as needed for pain, to follow up with her PCP this week, and to return for worsening symptoms. - Vital Signs Vital signs: Temp Pulse Resp BP Pulse Ox 98.5 F 67 14 110/78 99 12/04/17 11:04 12/04/17 11:04 12/04/17 11:04 12/04/17 11:04 12/04/17 11:04 - Laboratory Result Diagrams: 12/04/17 12:07 12/04/17 12:07 Laboratory results interpreted by me: 12/04/17 12/04/17 12:07 12:07 RDW 16.1 H AST 72 H Discharge - Discharge Clinical Impression: Flank pain Condition: Good Disposition: HOME, SELF-CARE Instructions: Flank Pain ([facility]) Prescriptions: Ondansetron [Zofran Odt 4 mg Tablet] 1 - 2 tab PO Q4H PRN #15 tab.rapdis PRN Reason: For Nausea/Vomiting Referrals: FRANKIE BAEZ DO [NO LOCAL MD] - Follow up as needed
[2017-12-04 12:09] LABS: APPEARANCE,URINE SLIGHTLY-CLOUDY; BILIRUBIN,URINE NEGATIVE (NEGATIVE); COLOR,URINE YELLOW; GLUCOSE, URINE NEGATIVE (NEGATIVE); KETONES,URINE NEGATIVE (NEGATIVE); LEUKOCYTE ESTERASE,URINE NEGATIVE (NEGATIVE); NITRITE,URINE NEGATIVE (NEGATIVE); PROTEIN,URINE NEGATIVE (NEGATIVE); URINE SPECIFIC GRAVITY 1.019; UROBILINOGEN,URINE NEGATIVE mg/dL (<2.0)
[2017-12-04 12:40] LABS: ABSOLUTE EOSINOPHILS # (AUTO) 0.1 10^3/uL (0.0-0.6); ABSOLUTE LYMPHOCYTES (AUTO) 1.7 10^3/uL (0.5-4.7); ABSOLUTE MONOCYTES (AUTO) 0.5 10^3/uL (0.1-1.4); ABSOLUTE NEUT (AUTO) 4.9 10^3/uL (1.7-8.2); BASOPHILS % (AUTO) 0.4 % (0-2); EOSINOPHILS % (AUTO) 1.2 % (0-6); HEMATOCRIT 39.9 % (36.0-47.0); HEMOGLOBIN 13.4 g/dL (12.0-15.5); LYMPHOCYTES % (AUTO) 23.8 % (13-45); MEAN CORPUSCULAR HEMOGLOBIN 28.2 pg (27.0-33.4); MEAN CORPUSCULAR HGB CONC 33.6 g/dL (32.0-36.0); MEAN CORPUSCULAR VOLUME 84 fl (80-97); MONOCYTES % (AUTO) 6.4 % (3-13); PLATELET COUNT 210 10^3/uL (150-450); RED BLOOD COUNT 4.75 10^6/uL (3.72-5.28); RED CELL DISTRIBUTION WIDTH 16.1 % (11.5-14.0); SEGMENTED NEUTROPHILS % (AUTO) 68.2 % (42-78); TOTAL CELLS COUNTED % (AUTO) 100 %; WHITE BLOOD COUNT 7.2 10^3/uL (4.0-10.5)
--- NOTE | 2017-12-04 12:44 | RADIOLOGY REPORT (SQ) ---
EXAM DESCRIPTION: KUB/ABDOMEN (SINGLE VIEW) COMPLETED DATE/TIME: 12/04/2017 12:16 pm REASON FOR STUDY: LLQ pain, L flank pain COMPARISON: None. NUMBER OF VIEWS: One view. TECHNIQUE: Supine radiographic image of the abdomen acquired. LIMITATIONS: None. FINDINGS: BOWEL GAS PATTERN: Nonspecific nonobstructive bowel gas pattern with moderate stool in the ascending colon, mild dilatation of the transverse colon, and few small bowel loops with air in the mid epigastrium. Descending colon decompressed CALCIFICATIONS: Right upper quadrant calcifications, question calcified gallstones. SOFT TISSUES: No gross mass or suggestion of organomegaly. HARDWARE: None in the abdomen. BONES: No acute fracture. No worrisome bone lesions. OTHER: No other significant finding. IMPRESSION: Calcifications right upper quadrant, question calcified gallstones Few nonspecific dilated small bowel loops and dilated transverse colon in the mid abdomen, nonspecifi c nonobstructive bowel gas pattern TECHNICAL DOCUMENTATION: JOB ID: [id number] [employer]- All Rights Reserved Reading location - IP/workstation name: [email or web address]
[2017-12-04 12:54] LABS: ALANINE AMINOTRANSFERASE 41 U/L (9-52); ALBUMIN 4.3 g/dL (3.5-5.0); ALKALINE PHOSPHATASE 74 U/L (38-126); ANION GAP 9 (5-19); ASPARTATE AMINO TRANSFERASE 72 U/L (14-36); BILIRUBIN,DIRECT 0.3 mg/dL (0.0-0.4); BILIRUBIN,TOTAL 0.3 mg/dL (0.2-1.3); BLOOD UREA NITROGEN 14 mg/dL (7-20); CALCIUM 9.2 mg/dL (8.4-10.2); CARBON DIOXIDE 30 mmol/L (22-30); CHLORIDE 104 mmol/L (98-107); GLUCOSE 98 mg/dL (75-110); LIPASE 39.2 U/L (23-300); POTASSIUM 4.6 mmol/L (3.6-5.0); SODIUM 142.5 mmol/L (137-145)
--- NOTE | 2017-12-04 13:59 | RADIOLOGY REPORT (SQ) ---
EXAM DESCRIPTION: CT ABD/PELVIS NO ORAL OR IV COMPLETED DATE/TIME: 12/04/2017 1:46 pm REASON FOR STUDY: L flank pain COMPARISON: None. TECHNIQUE: CT scan of the abdomen and pelvis performed without intravenous or oral contrast. Images reviewed with lung, soft tissue, and bone windows. Reconstructed coronal and sagittal MPR images revi ewed. All images stored on PACS. All CT scanners at this facility use dose modulation, iterative reconstruction, and/or weight based d osing when appropriate to reduce radiation dose to as low as reasonably achievable (ALARA). [facility]: Dose Right [facility]: CareDose [facility]: Dose Right [facility]: Teradose 4D [facility]: Smart [employer] RADIATION DOSE: CT Rad equipment meets quality standard of care and radiation dose reduction techniq ues were employed. CTDIvol: 5.3 mGy. DLP: 286 mGy-cm.mGy. LIMITATIONS: None. FINDINGS: LOWER CHEST: No significant findings. No nodules or infiltrates. NON-CONTRASTED LIVER, SPLEEN, ADRENALS: Evaluation limited by lack of IV contrast. No identified sign ificant masses. PANCREAS: No masses. No peripancreatic inflammatory changes. GALLBLADDER: Contracted. Gallstones. RIGHT KIDNEY AND URETER: No suspicious masses. Assessment limited by lack of IV contrast. No signif icant calcifications. No hydronephrosis or hydroureter. LEFT KIDNEY AND URETER: No suspicious masses. Assessment limited by lack of IV contrast. No signifi cant calcifications. No hydronephrosis or hydroureter. AORTA AND RETROPERITONEUM: No aneurysm. No retroperitoneal masses or adenopathy. BOWEL AND PERITONEAL CAVITY: No obvious masses or inflammatory changes. No free fluid. APPENDIX: Normal. PELVIS, BLADDER, AND ABDOMINAL WALL:No abnormal masses. No free fluid. Bladder normal. BONES: No significant findings. OTHER: No other significant finding. IMPRESSION: Contracted gallbladder with gallstones. COMMENT: Quality ID # [id number]: Final reports with documentation of one or more dose reduction techniques (e.g., Automated exposure control, adjustment of the mA and/or kV according to patient size, use of iterative reconstruction technique) TECHNICAL DOCUMENTATION: JOB ID: [id number] [employer]- All Rights Reserved Reading location - IP/workstation name: [email or web address]
[2017-12-04] MEDS ORDERED: KETOROLAC TROMETHAMINE INJ/PF 30 MG/1 ML SDV IV ONE (14:04)
[2017-12-04] MEDS ORDERED: KETOROLAC TROMETHAMINE 60 MG/2 ML SDV IM ONE (14:34)
[2017-12-04 14:58] VITALS: BP 120/87
== END 2017-12-04 14:55 | disposition home or self-care (01) ==
LOC: ER 11:00
DX: R10.9 Unspecified abdominal pain (principal); R11.0 Nausea; E11.9 Type 2 diabetes mellitus without complications
CPT/HCPCS: 99284; 96372; 36415; 83690; 85025; 81025; 80053; 81001; 74018; 74176; J1885

== ENCOUNTER 2018-12-09 11:17 | Emergency (ER) | payer SELFPAY ==
[2018-12-09 11:32] VITALS: BP 115/81
[2018-12-09] MEDS ORDERED: MAG HYDROX/AL HYDROX/SIMETH SUSP 30 ML UDCUP PO ONE (11:38)
[2018-12-09] MEDS ORDERED: NORMAL SALINE 1000 ML 1,000 ML IV ONE (11:38)
[2018-12-09] MEDS ORDERED: LIDOCAINE 2% VISCOUS SOLN 20 ML UDCUP PO ONE (11:38)
[2018-12-09] MEDS ORDERED: ONDANSETRON HCL INJ/PF 4 MG/2 ML SDV IV ONE (11:38)
--- NOTE | 2018-12-09 11:39 | ER Document Report ---
ED Medical Screen (RME) - General Chief Complaint: Epigastric Pain Stated Complaint: VOMITING Time Seen by Provider: 12/09/18 11:37 Mode of Arrival: Ambulatory Information source: Patient Notes: Patient presents complaining of epigastric pain with nausea vomiting and mild diarrhea that started today. Patient denies any fever. Patient does report a history of stomach ulcers in the past and suspects the same today. I have greeted and performed a rapid initial assessment of this patient. A comprehensive ED assessment and evaluation of the patient, analysis of test results and completion of the medical decision making process will be conducted by additional ED providers. TRAVEL OUTSIDE OF THE [place] IN LAST 30 DAYS: No - Related Data Allergies/Adverse Reactions: No Known Allergies Allergy (Verified 12/09/18 11:23) Past Medical History Pulmonary Medical History: Denies: Hx Asthma Endocrine Medical History: Reports: Hx Diabetes Mellitus Type 2 Renal/ Medical History: Denies: Hx Peritoneal Dialysis - Immunizations Hx Diphtheria, Pertussis, Tetanus Vaccination: Yes - 01/10/14 Physical Exam - Vital signs Vitals: Temp Pulse Resp BP Pulse Ox 97.9 F 63 16 115/81 99 12/09/18 11:27 12/09/18 11:27 12/09/18 11:27 12/09/18 11:27 12/09/18 11:27 - Abdominal Tenderness: Tender - Epigastric Course - Vital Signs Vital signs: Temp Pulse Resp BP Pulse Ox 97.9 F 63 16 115/81 99 12/09/18 11:27 12/09/18 11:27 12/09/18 11:27 12/09/18 11:27 12/09/18 11:27
[2018-12-09 12:18] LABS: ABSOLUTE EOSINOPHILS # (AUTO) 0.1 10^3/uL (0.0-0.6); ABSOLUTE LYMPHOCYTES (AUTO) 1.2 10^3/uL (0.5-4.7); ABSOLUTE MONOCYTES (AUTO) 0.5 10^3/uL (0.1-1.4); ABSOLUTE NEUT (AUTO) 3.6 10^3/uL (1.7-8.2); BASOPHILS % (AUTO) 0.6 % (0-2); EOSINOPHILS % (AUTO) 1.4 % (0-6); HEMATOCRIT 41.6 % (36.0-47.0); HEMOGLOBIN 13.9 g/dL (12.0-15.5); LYMPHOCYTES % (AUTO) 21.8 % (13-45); MEAN CORPUSCULAR HEMOGLOBIN 27.6 pg (27.0-33.4); MEAN CORPUSCULAR HGB CONC 33.4 g/dL (32.0-36.0); MEAN CORPUSCULAR VOLUME 83 fl (80-97); MONOCYTES % (AUTO) 8.8 % (3-13); PLATELET COUNT 248 10^3/uL (150-450); RED BLOOD COUNT 5.03 10^6/uL (3.72-5.28); RED CELL DISTRIBUTION WIDTH 15.4 % (11.5-14.0); SEGMENTED NEUTROPHILS % (AUTO) 67.4 % (42-78); TOTAL CELLS COUNTED % (AUTO) 100 %; WHITE BLOOD COUNT 5.3 10^3/uL (4.0-10.5)
[2018-12-09 12:51] LABS: ALANINE AMINOTRANSFERASE 37 U/L (9-52); ALBUMIN 5.1 g/dL (3.5-5.0); ALKALINE PHOSPHATASE 88 U/L (38-126); ANION GAP 7 (5-19); ASPARTATE AMINO TRANSFERASE 34 U/L (14-36); BILIRUBIN,DIRECT 0.2 mg/dL (0.0-0.4); BILIRUBIN,TOTAL 0.5 mg/dL (0.2-1.3); BLOOD UREA NITROGEN 16 mg/dL (7-20); CALCIUM 9.6 mg/dL (8.4-10.2); CARBON DIOXIDE 29 mmol/L (22-30); CHLORIDE 104 mmol/L (98-107); GLUCOSE 83 mg/dL (75-110); LIPASE 64.4 U/L (23-300); POTASSIUM 4.6 mmol/L (3.6-5.0); SODIUM 139.8 mmol/L (137-145); TOTAL PROTEIN 8.2 g/dL (6.3-8.2)
--- NOTE | 2018-12-09 13:31 | ER Document Report ---
ED GI/ - General Chief Complaint: Epigastric Pain Stated Complaint: VOMITING Time Seen by Provider: 12/09/18 11:37 Primary Care Provider: [facility] [Provider Group] - Follow up as needed [facility] [Primary Care Provider] - Follow up as needed Mode of Arrival: Ambulatory Notes: Patient is a 32-year-old female presents to the emergency department with chief complaint of epigastric and right upper quadrant pain. Patient states she has intermittently had this discomfort over the past year. Patient states that she does go days without eating due to her busy lifestyle and having 5 children. Patient states when she does get a chance to eat she feels like she overdoes it and eats a large amount of food. Patient states that the pain is exacerbated by eating food. Patient states she has had some intermittent diarrhea after eating as well as feeling bloated. Patient states today she woke up around 4 AM with epigastric and right upper quadrant pain. Patient states that she vomited multiple times within 1 hour and did have a few episodes of diarrhea. Patient states that the pain is constant and stabbing in nature. Patient states she does have a history of acid reflux but only takes Tums as needed. Patient states her primary care physician is the [facility]. Patient denies having an EGD in the past. TRAVEL OUTSIDE OF THE [place] IN LAST 30 DAYS: No - Related Data Allergies/Adverse Reactions: No Known Allergies Allergy (Verified 12/09/18 11:23) Past Medical History - General Information source: Patient - Social History Smoking Status: Never Smoker Cigarette use (# per day): No Chew tobacco use (# tins/day): No Smoking Education Provided: No Frequency of alcohol use: Rare Drug Abuse: Marijuana Lives with: Family Family History: Reviewed & Not Pertinent - Past Medical History Cardiac Medical History: Reports: None Pulmonary Medical History: Reports: None Denies: Hx Asthma EENT Medical History: Reports: None Neurological Medical History: Reports: None Endocrine Medical History: Reports: Hx Diabetes Mellitus Type 2 Renal/ Medical History: Reports: None. Denies: Hx Peritoneal Dialysis Malignancy Medical History: Reports: None GI Medical History: Reports: None Musculoskeletal Medical History: Reports None Skin Medical History: Reports None Psychiatric Medical History: Reports: None Traumatic Medical History: Reports: None Infectious Medical History: Reports: None Past Surgical History: Reports: None - Immunizations Hx Diphtheria, Pertussis, Tetanus Vaccination: Yes - 01/10/14 Review of Systems - Review of Systems Constitutional: No symptoms reported EENT: No symptoms reported Cardiovascular: No symptoms reported Respiratory: No symptoms reported Gastrointestinal: See HPI Genitourinary: No symptoms reported Female Genitourinary: No symptoms reported Musculoskeletal: No symptoms reported Skin: No symptoms reported Hematologic/Lymphatic: No symptoms reported Neurological/Psychological: No symptoms reported Physical Exam - Vital signs Vitals: Temp Pulse Resp BP Pulse Ox 97.9 F 63 16 115/81 99 12/09/18 11:27 12/09/18 11:27 12/09/18 11:27 12/09/18 11:27 12/09/18 11:27 Interpretation: Normal - Notes Notes: GENERAL: Well-appearing, well-nourished and in no acute distress. HEAD: Atraumatic, normocephalic. EYES: Pupils equal round and reactive to light, extraocular movements intact, sclera anicteric, conjunctiva are normal. ENT: TMs normal, nares patent, oropharynx clear without exudates. Moist mucous membranes. NECK: Normal range of motion, supple without lymphadenopathy or JVD. LUNGS: Breath sounds clear to auscultation bilaterally and equal. No wheezes rales or rhonchi. HEART: Regular rate and rhythm without murmurs, rubs or gallops. ABDOMEN: Soft, RUQ and epigastric tenderness, hyperactive bowel sounds. No guarding, no rebound. No masses appreciated. BACK: No cervical, thoracic, lumbar midline tenderness. No saddle anesthesia, normal distal neurovascular exam. GENITOURINARY: Deferred. EXTREMITIES: Normal range of motion, no pitting or edema. No clubbing or cya nosis. NEUROLOGICAL: Cranial nerves II through XII grossly intact. Normal speech, normal gait. PSYCH: Normal mood, normal affect. SKIN: Warm, Dry, normal turgor, no rashes or lesions noted. Course - Re-evaluation Re-evalutation: 12/09/18 13:30 Labs are unremarkable. I will obtain a right upper quadrant ultrasound to rule out gallbladder abnormality. I did discuss this with the patient. If the gallbladder ultrasound is negative I will plan to treat patient for acid reflux and place her on a daily medication with strict follow-up with her primary care physician and a referral to gastroenterology. States after receiving IV medication as well as the GI cocktail her pain improved from a 10 out of 10 to a 2 out of 10. She is currently in no acute distress. 12/09/18 15:37 Patient's gallbladder ultrasound did show sludge. Patient has been able to tolerate liquids while in the emergency department without distress. On the patient that her gallbladder will need to be removed. I referred the patient to [facility] for a consult. I did inform the patient to eat small frequent meals low in fat as the fat can irritate the gallbladder and cause gallbladder attacks. Patient to return on strict precautions to include yellowing of the whites of her eyes, yellowing of her skin, uncontrollable nausea or vomiting, se brennen abdominal pain, fever or any other concerning signs or symptoms. Gallbladder ultrasound showed sludge in the gallbladder with no gallbladder wall thickening or guillermo cholecystic fluid. No gross shadowing stones seen in the gallbladder neck by ultrasound today. Patient does have normal lipase and normal liver enzymes. I do believe the patient is stable to go home and follow- up outpatient. - Vital Signs Vital signs: Temp Pulse Resp BP Pulse Ox 97.9 F 63 16 115/81 99 12/09/18 11:27 12/09/18 11:27 12/09/18 11:27 12/09/18 11:27 12/09/18 11:27 - Laboratory Result Diagrams: 12/09/18 11:53 12/09/18 11:53 Laboratory results interpreted by me: 12/09/18 12/09/18 11:53 11:53 RDW 15.4 H Albumin 5.1 H - Diagnostic Test Radiology reviewed: Reports reviewed Discharge - Discharge Clinical Impression: Epigastric pain, Gallbladder sludge Vomiting Qualifiers: Vomiting type: unspecified Vomiting Intractability: non-intractable Nausea presence: with nausea Qualified Code(s): R11.2 - Nausea with vomiting, un specified Condition: Stable Disposition: HOME, SELF-CARE Additional Instructions: Today you were seen in the emergency department for epigastric and right upper quadrant pain. You did have an ultrasound of the right upper quadrant which did show sludge in the gallbladder. You will need to follow-up with [facility], as he may need to remove your gallbladder. Certain foods, in particular fatty foods may provoke attacks and cause pain and vomiting. Please start out with a clear liquid diet and call [facility] for a follow-up appointment. May be beneficial to eat small frequent meals versus a large meal every few days. Please return to the emergency department if you develop severe pain, repeated vomiting, fever or yellowing of your skin or the whites of your eyes. Gallbladder Disease Your evaluation shows evidence of gallbladder disease. The gallbladder is a pouch under the liver which stores bile. Stones, infection, or irritation of the gallbladder cause attacks of pain. Certain foods -- fats in particular -- may provoke attacks. The usual treatment for gallbladder disease is surgical removal of the gallbladder -- called a cholecystectomy. You will be referred to a physician qualified to advise you on the best treatment for your problem. Hospitalization is not necessary. Take clear liquids only until you are painfree. After that, you should stay on a low-fat diet, with frequent SMALL meals. Call the doctor or return at once if you develop severe pain, repeated vomiting, fever, or jaundice (a yellow color in the skin and whites of the eyes). [facility] [[facility] - Follow up as needed [facility] [Provider Group] - Follow up as needed
--- NOTE | 2018-12-09 14:41 | RADIOLOGY REPORT (SQ) ---
EXAM DESCRIPTION: U/S ABDOMEN LIMITED W/O DOP COMPLETED DATE/TIME: 12/09/2018 2:07 pm REASON FOR STUDY: ruq pain COMPARISON: CT abdomen pelvis 12/04/2017, CT angio chest 09/07/2016 TECHNIQUE: Dynamic and static grayscale images acquired of the abdomen and recorded on PACS. Additio nal selected color Doppler and spectral images recorded. LIMITATIONS: Midline bowel gas FINDINGS: PANCREAS: Midline pancreas unremarkable LIVER: No masses. Echotexture normal. LIVER VASCULATURE: Normal directional flow of the main portal vein and hepatic veins. GALLBLADDER: Prior CT exams were reviewed. Along the gallbladder neck on both prior CT abdomen pelvi s and CT angio chest exams, there are curvilinear calcifications present. This could represent a sto ne in the gallbladder neck. Calcifications along the wall of the cystic duct could mimic this appear ance. Today's ultrasound fails to disclose these calcifications at the charles hepatis. Gallbladder is 8 cm in length without gallbladder wall thickening or pericholecystic fluid. There is sludge in the gallb ladder fundus. No fundal shadowing stones. ULTRASOUND-DETECTED WALKER'S SIGN: Negative. INTRAHEPATIC DUCTS AND COMMON DUCT: CBD and intrahepatic ducts normal caliber. No filling defects. D istal most common duct not well seen due to duodenum gas INFERIOR VENA CAVA: Normal flow. AORTA: No aneurysm. RIGHT KIDNEY: Normal size. Normal echogenicity. No solid or suspicious masses. No hydronephrosis. No calcifications. PERITONEAL AND RIGHT PLEURAL SPACE: No ascites or effusions. OTHER: No other significant findings. IMPRESSION: Sludge in the gallbladder. No gallbladder wall thickening or pericholecystic fluid. Prior CT exams from 2017 and 2016 demonstrates calcifications in the charles hepatis at the expected lo cation of the cystic duct/gallbladder neck. This area was difficult to visualize today, no gross sha dowing stones are seen in the gallbladder neck by ultrasound. TECHNICAL DOCUMENTATION: JOB ID: [id number] [employer]- All Rights Reserved Reading location - IP/workstation name: [email or web address]
[2018-12-09] MEDS ORDERED: ONDANSETRON ODT 4 MG TAB (6 TAB/ER DISP) PO PRN (15:28)
== END 2018-12-09 15:38 | disposition home or self-care (01) ==
LOC: ER 11:17
DX: K82.8 Other specified diseases of gallbladder (principal); R10.13 Epigastric pain; R10.11 Right upper quadrant pain; R19.7 Diarrhea, unspecified; E11.9 Type 2 diabetes mellitus without complications
CPT/HCPCS: 99284; 96361; 96374; 36415; 83690; 84703; 85025; 80053; 76705; J3490; J2405; J7030